=== PATIENT | female | born 1990 | race Two or more races ===

== ENCOUNTER 2019-05-21 10:40 | Outpatient (CLI) | payer OTHER | END 2019-05-21 11:30 | disposition home or self-care (01) | LOC: PRENATAL 10:40 | DX: O99.89 Other specified diseases and conditions complicating pregnancy, childbirth and the puerperium (principal) ==

== ENCOUNTER → 2019-09-29 | Outpatient (CLI) | payer OTHER ==
[~2019-09-29] MED LIST: FUSION PLUS CA1 EACH PO; IRON325 MG PO; PRENATAL TABLE1 EACH PO
== END | disposition home or self-care (01) ==
LOC: PRENATAL 08:30
DX: O26.843 Uterine size-date discrepancy, third trimester (principal); O24.410 Gestational diabetes mellitus in pregnancy, diet controlled; O99.013 Anemia complicating pregnancy, third trimester; O36.8131 Decreased fetal movements, third trimester, fetus 1; Z3A.38 38 weeks gestation of pregnancy

== ENCOUNTER 2019-10-05 07:38 | Inpatient (IN) | payer OTHER ==
[~2019-10-05] VITALS: Ht 152.4 cm; Wt 52.2 kg
[2019-10-05] MEDS ORDERED: IRON325 MG PO (09:56)
[2019-10-05] MEDS ORDERED: PRENATAL TABLE1 EACH PO (09:57)
[2019-10-07] MEDS ORDERED: FUSION PLUS CA1 EACH PO (10:30)
== END 2019-10-07 12:30 | disposition home or self-care (01) | DRG 807 ==
LOC: LDR 07:38 → OB/GYN 07:38
PROVIDERS: ADMIT Obstetrics & Gynecology
PROC: 10E0XZZ Delivery of Products of Conception, External Approach (ICD-10-PCS; principal; 2019-10-05)
PROC: 0KQM0ZZ Repair Perineum Muscle, Open Approach (ICD-10-PCS; 2019-10-05)
PROC: 10907ZC Drainage of Amniotic Fluid, Therapeutic from Products of Conception, Via Natural or Artificial Opening (ICD-10-PCS; 2019-10-05)
PROC: 3E0P7VZ Introduction of Hormone into Female Reproductive, Via Natural or Artificial Opening (ICD-10-PCS; 2019-10-05)
PROC: 3E033VJ Introduction of Other Hormone into Peripheral Vein, Percutaneous Approach (ICD-10-PCS; 2019-10-05)
PROC: 4A1HXCZ Monitoring of Products of Conception, Cardiac Rate, External Approach (ICD-10-PCS; 2019-10-05)
DX: O70.1 Second degree perineal laceration during delivery (principal); Z37.0 Single live birth; Z3A.38 38 weeks gestation of pregnancy